=== PATIENT | female | born 1960 | race Caucasian/White ===

== ENCOUNTER → 2017-02-27 | Outpatient (CLI) | payer BC ==
[~2017-02-27] MED LIST: CHOL20007 PO; CLOB-65 EXT; CYCL0.052 OP; ERGO1CAP35 PO; ETAN25IN4 SC; FLUO0.05 TOP; LEVO75TA5 PO; LISI10TA PO; MELO15TA3 PO; MELO7.5T5 PO; METR1GEL3 TOP; MULTCAP7 PO
--- NOTE | 2017-02-27 08:51 | DIAGNOSTIC IMAGING REPORT ---
ABDOMINAL ULTRASOUND, RIGHT UPPER QUADRANT HISTORY: Right upper quadrant abdominal pain. COMPARISON: Right upper quadrant ultrasound August 28, 2014. FINDINGS: Liver morphology is normal. No hepatic lesions are identified. There is no biliary ductal dilatation. The common bile duct measures 5 mm in caliber. Multiple gallstones are noted. There is no gallbladder wall thickening or pericholecystic fluid. The pancreatic body is normal. The head and tail are slightly obscured. There is no right hydronephrosis. IMPRESSION: 1. Cholelithiasis. No gallbladder wall thickening. 2. No biliary ductal dilatation. Electronically signed by: Geronimo Schafer M.D. 02/27/2017 8:50 AM Dictated Date/Time: 02/27/2017 8:49 AM
== END | disposition home or self-care (01) ==
LOC: C.ULTR 08:13
PROVIDERS: ATTEND Physician Assistant Medical
DX: R10.11 Right upper quadrant pain (principal)

== ENCOUNTER → 2017-03-17 | Outpatient (CLI) | payer BC ==
[2017-03-19 11:08] LABS: HERPES SIMPLEX CULT SOURCE GENITAL-VULVA; HERPES SIMPLEX VIRUS CULT NOT ISOLATED (NOT ISOLATED)
== END | disposition home or self-care (01) ==
LOC: C.LABSPEC 10:44
PROVIDERS: ATTEND Physician Assistant
DX: N76.6 Ulceration of vulva (principal)

== ENCOUNTER → 2017-03-17 | Outpatient (CLI) | payer BC | END | disposition home or self-care (01) | LOC: C.PAPS 11:17 | PROVIDERS: ATTEND Physician Assistant | DX: Z01.419 Encounter for gynecological examination (general) (routine) without abnormal findings (principal) ==

== ENCOUNTER 2017-03-31 05:04 | Day surgery (SDC) | payer BC ==
[2017-03-19 09:04] VITALS: BMI 44.0
--- NOTE | 2017-03-19 09:39 | PAT Medication Instructions ---
Service Date Mar 19, 2017. Current Home Medication List Cholecalciferol (Vitamin D3), 1 TAB PO QAM Cyclosporine (Ophth) (Restasis), 1 DROP OP BID Etanercept (Enbrel), SC WK Levothyroxine Sodium (Levothyroxine Sodium), 1 TAB PO QAM Lisinopril (Prinivil), 10 MG PO QAM Meloxicam (Mobic), 15 MG PO QAM Multiple Vitamins W/ Minerals (Eye Vitamins), 1 CAP PO BID Medication Instructions For Your Scheduled Surgery - Hold per Machine Stamper's instructions: Etanercept (Enbrel), SC WK - Hold the following medications the morning of surgery: Lisinopril (Prinivil), 10 MG PO QAM Cholecalciferol (Vitamin D3), 1 TAB PO QAM Multiple Vitamins W/ Minerals (Eye Vitamins), 1 CAP PO BID Meloxicam (Mobic), 15 MG PO QAM (otherwise okay to continue per surgeon) - Take the following medications the morning of surgery with a sip of water OTHERWISE NOTHING TO EAT OR DRINK AFTER MIDNIGHT: Cyclosporine (Ophth) (Restasis), 1 DROP OP BID Levothyroxine Sodium (Levothyroxine Sodium), 1 TAB PO QAM - Take the following medications as scheduled the night before surgery: Cyclosporine (Ophth) (Restasis), 1 DROP OP BID Multiple Vitamins W/ Minerals (Eye Vitamins), 1 CAP PO BID If you have any questions please call us at [phone] or [phone] or [phone]
--- NOTE | 2017-03-19 10:22 | DIAGNOSTIC IMAGING REPORT ---
CHEST PREADMISSION(PA/LAT) CLINICAL HISTORY: Preoperative chest COMPARISON STUDY: 02/10/2013 FINDINGS: The cardiac and mediastinal contours are normal. There is no evidence of focal pulmonary consolidation. There is no evidence of failure. No pleural effusions are visualized.[ IMPRESSION: No active disease in the chest. Electronically signed by: Augusto Vásquez M.D. 03/19/2017 10:20 AM Dictated Date/Time: 03/19/2017 10:20 AM
[~2017-03-31] VITALS: Ht 170.2 cm; Wt 128.2 kg
[~2017-03-31 05:04] MED LIST changes: -CLOB-65 EXT; -ERGO1CAP35 PO; -FLUO0.05 TOP; -MELO15TA3 PO; -METR1GEL3 TOP
[2017-03-31 05:35] VITALS: BP 158/76; PULSE 68; TEMP 37; O2SAT 98; Ht 170.2 cm; Wt 128.2 kg
[2017-03-31] MEDS ORDERED: LACTATED RINGER'S 1000ML 1,000 ML IV SCH (06:00)
--- NOTE | 2017-03-31 06:21 | History & Physical Bridge Note ---
H&P Re-Evaluation Bridge Note: I have examined the patient, reviewed the History & Physical and in the interval since the performance of the History & Physical I have noted the following changes of clinical significance: No changes noted all questions answered to be here post op
[2017-03-31] MEDS ORDERED: SUCCINYLCHOLINE CHLORIDE 20 MG/ML 10 ML VIAL IV ONE (06:35)
[2017-03-31] MEDS ORDERED: FENTANYL CITRATE INJ 50 MCG/1 ML 2 ML VIAL ONE ×4 (06:35→08:15)
[2017-03-31] MEDS ORDERED: ONDANSETRON INJ 2 MG/ML 2 ML VIAL ONE (06:35)
[2017-03-31] MEDS ORDERED: MIDAZOLAM HCL 1 MG/ML 2ML VIAL ONE (06:35)
[2017-03-31] MEDS ORDERED: DEXAMETHASONE SOD INJ 4 MG/ML VIAL ONE (06:35)
[2017-03-31] MEDS ORDERED: PROPOFOL IV EMULSION 10 MG/ML 20 ML VIAL IV ONE (06:35)
[2017-03-31] MEDS ORDERED: LIDOCAINE HCL 2% 2 ML VIAL (20MG/ML) ONE (06:35)
[2017-03-31] MEDS ORDERED: LIDOCAINE/EPINEPHRINE 1% 20 ML VIAL ONE (06:38)
[2017-03-31] MEDS ORDERED: CONRAY 60% 50 ML VIAL ONE (06:38)
[2017-03-31] MEDS ORDERED: SODIUM CHLORIDE 0.9% 1000ML 1,000 ML IV SCH (08:09)
[2017-03-31] MEDS ORDERED: OXYC-57 PO (08:11)
--- NOTE | 2017-03-31 08:13 | Discharge Instructions ---
Discharge Instructions Date of Service Mar 31, 2017. Admission Reason for Admission: Cholelithiasis Discharge Discharge Diagnosis / Problem: Cholelithiasis Discharge Goals Goal(s): Decrease discomfort, Improve function Activity Recommendations Activity Limitations: as noted below Lifting Limitations: no more than 10 pounds Exercise/Sports Limitations: until after follow-up appointment May Resume Sexual Activity: after follow-up appointment Shower/Bathe: tomorrow Driving or Machine Use: resume 3 days after discharge . Instructions / Follow-Up Instructions / Follow-Up Please follow-up with Dr. Kamara in the office in 1-2 weeks. Please call the office at [phone] to make a follow-up appointment if you do not have one already. Please call the office with any questions or concerns. Current Hospital Diet Patient's current hospital diet: Discharge Diet Recommended Diet: Regular Diet Procedures Procedures Performed: Laparoscopic Cholcystectomy with cholangiogram Pending Studies Studies pending at discharge: yes List of pending studies: Pathology report. Medical Emergencies . Who to Call and When: Medical Emergencies: If at any time you feel your situation is an emergency, please call 911 immediately. . Non-Emergent Contact Non-Emergency issues call your: Primary Care Provider, Surgeon Call Non-Emergent contact if: temperature is above 101.5, your pain is not controlled, wound has increased drainage, wound has increased redness . "Provider Documentation" section prepared by Lou Flores. . VTE Core Measure Inpt VTE Proph given/why not?: SCD's [place] Drug Monitoring Program Search Results: patient reviewed within database, no issues identified
[2017-03-31] MEDS ORDERED: PROMETHAZINE HCL INJ 12.5 MG in SODIUM CHLORIDE 0.9% 50ML 50 ML IV PRN ×2 (08:15→10:00)
[2017-03-31] MEDS ORDERED: NALOXONE HCL 0.4 MG/1 ML VIAL/CARP IV PRN (08:15)
[2017-03-31] MEDS ORDERED: ATROPINE SULFATE 0.1 MG/ML 5ML SYR IV PRN (08:15)
[2017-03-31] MEDS ORDERED: OXYCODONE/ACETAMINOPHEN 5-325 TAB PO PRN ×2 (08:15)
[2017-03-31] MEDS ORDERED: FLUMAZENIL 0.1 MG/1 ML 10 ML VIAL IV PRN (08:15)
[2017-03-31] MEDS ORDERED: EpHEDrine SULFATE INJ 50 MG/ML AMP IV PRN (08:15)
[2017-03-31] MEDS ORDERED: ONDANSETRON INJ 2 MG/ML 2 ML VIAL IV PRN ×2 (08:15)
[2017-03-31] MEDS ORDERED: LABETALOL HCL IV 5 MG/ML 20ML IV PRN (08:15)
[2017-03-31] MEDS: FENTANYL CITRATE INJ 50 MCG/1 ML 2 ML VIAL IV PRN ×4 (08:18→08:35)
--- NOTE | 2017-03-31 08:21 | OPERATIVE REPORT ---
DATE OF OPERATION: 03/31/2017 SURGEON: Ousmane Kamara MD. [facility] HELPER DISTILLERY: Lou Flores PA-C. PREOPERATIVE DIAGNOSIS: Chronic cholecystitis, cholelithiasis, symptomatic. POSTOPERATIVE DIAGNOSIS: Chronic cholecystitis, cholelithiasis, symptomatic. OPERATIVE PROCEDURE: Laparoscopic cholecystectomy, intraoperative cholangiogram. SUMMARY: After induction of general endotracheal anesthesia, the patient's abdomen was prepped with Betadine solution and properly draped. I made a small incision supraumbilically sufficient enough to place a Veress needle followed by CO2 followed by 5 mm trocar. Point of entry inspected and no injury was identified. Under direct visualization, we placed a 5 mm epigastric, two 5 mm subcostal port with preemptive local analgesia of 1% Xylocaine with epinephrine. Gallbladder was visualized. Some adhesions to the gallbladder which was chronic in nature were taken down, mostly by blunt dissection. Retracted the gallbladder out. Then we dissected out towards the triangle of Calot. We identified a very small artery, then bifurcated and we doubly clipped and divided cystic duct. We dissected out sufficient enough to get around it. At this point, we placed a clip proximally. A small opening in the cystic duct was made. A #4 ureteral catheter transversed the abdominal wall and an Angiocath was positioned in the cystic duct. Serial x-rays were taken which showed free flow into the duodenum. No obstruction. At this point the cholangiocatheter was then removed. The gallbladder was doubly clipped and divided and taken out in an antegrade fashion using electrocautery, leaving as much peritoneum and touched the liver as possible. Gallbladder was then placed in an Endopouch and taken out intact through the epigastric port. At that point, the subhepatic and suprahepatic area was checked for hemostasis and appeared satisfactory. We placed a camera in subcostal port to visualize the umbilical hernia. There were no adhesions to the abdominal wall at the umbilical opening. Wounds were closed with 4-0 Monocryl. Steri-Strips applied. The procedure was tolerated well by the patient and was taken to recovery room in good condition. I attest to the content of the Intraoperative Record and any orders documented therein. Any exception s are noted below.
--- NOTE | 2017-03-31 08:22 | DIAGNOSTIC IMAGING REPORT ---
CHOLANGIOGRAM O.R. HISTORY: Post cholecystectomy. FLUOROSCOPY TIME: 3 seconds. FINDINGS: Fluoroscopy was provided for an intraoperative cholangiogram status post cholecystectomy. Contrast was injected through the cystic duct remnant. The common bile duct is normal in course and caliber. There are no filling defects seen within the common bile duct to suggest a retained stone. Contrast extends into the small bowel. There is no intrahepatic bile duct dilatation. IMPRESSION: Fluoroscopy provided for an intraoperative cholangiogram status post cholecystectomy. No filling defects within the common bile duct. The above report was generated using voice recognition software. It may contain grammatical, syntax or spelling errors. Electronically signed by: Andrea Roach M.D. 03/31/2017 8:21 AM Dictated Date/Time: 03/31/2017 8:17 AM
--- NOTE | 2017-03-31 08:27 | [facility] Operative Report ---
Operative Report Operative Date Mar 31, 2017. Pre-Operative Diagnosis Symptomatic Cholelithiasis Post-Operative Diagnosis Symptomatic Cholelithiasis Procedure(s) Performed Laparoscopic Cholcystectomy with cholangiogram Surgeon Dr. Jerardo Kamara Clinical Business Analyst Surgeon(s) Edwin Flores PA-C Estimated Blood Loss 5mL Findings ccc Specimens A: Gallbladder and contents Indications pain ruq Description of Procedure OR summary dictated confirmation number [id number] I attest to the content of the Intraoperative Record and any orders documented therein. Any exceptions are noted below.
--- NOTE | 2017-03-31 09:06 | Anesthesiology Progress Note ---
Anesthesia Post Op Note Date & Time Mar 31, 2017 at 09:06 Vital Signs Pain Intensity: 2 Vital Signs Past 12 Hours Date Time Temp Pulse Resp B/P (MAP) Pulse Ox O2 Delivery O2 Flow Rate FiO2 03/31/17 08:44 36.8 03/31/17 08:42 67 12 03/31/17 08:42 67 12 93 03/31/17 08:41 155/83 03/31/17 08:37 67 16 03/31/17 08:37 67 16 92 03/31/17 08:36 152/85 03/31/17 08:32 67 13 92 03/31/17 08:32 67 13 03/31/17 08:31 156/87 03/31/17 08:27 71 10 99 03/31/17 08:27 71 10 03/31/17 08:26 160/93 03/31/17 08:22 71 11 03/31/17 08:22 71 11 97 03/31/17 08:21 159/87 03/31/17 08:17 80 19 100 03/31/17 08:17 80 19 03/31/17 08:16 169/84 03/31/17 08:13 164/91 03/31/17 08:07 36.9 90 16 170/90 100 Oxymask 7 03/31/17 05:35 37 68 20 158/76 (103) 98 Room Air Notes Mental Status: alert / awake / arousable, participated in evaluation Pt Amnestic to Procedure: Yes Nausea / Vomiting: adequately controlled Pain: adequately controlled Airway Patency, RR, SpO2: stable & adequate BP & HR: stable & adequate Hydration State: stable & adequate Anesthetic Complications: no major complications apparent
[2017-03-31 09:07] VITALS: BP 158/76; PULSE 71; TEMP 36.4; O2SAT 96
[2017-03-31 09:37] VITALS: BP 148/77; PULSE 72; O2SAT 96
[2017-03-31] MEDS ORDERED: NURSING VERBAL MED ORDER ONE (10:00)
[2017-03-31 10:10] VITALS: BP 146/70; PULSE 61; O2SAT 97
[2017-03-31 10:40] VITALS: BP 158/78; PULSE 73; O2SAT 97
[2017-03-31 11:40] VITALS: BP 150/65; PULSE 78; TEMP 36.4; O2SAT 97
== END 2017-03-31 11:40 | disposition home or self-care (01) ==
LOC: C.ACU 05:04
PROVIDERS: ATTEND Surgery
DX: K80.18 Calculus of gallbladder with other cholecystitis without obstruction (principal); E78.5 Hyperlipidemia, unspecified; I10 Essential (primary) hypertension; Z90.722 Acquired absence of ovaries, bilateral; Z86.010 Personal history of colon polyps; Z80.0 Family history of malignant neoplasm of digestive organs; Z83.3 Family history of diabetes mellitus; Z80.1 Family history of malignant neoplasm of trachea, bronchus and lung

== ENCOUNTER → 2017-04-21 | Outpatient (CLI) | payer BC ==
--- NOTE | 2017-04-22 07:43 | MAMMOGRAPHY REPORT ---
BILATERAL DIGITAL SCREENING MAMMOGRAM TOMOSYNTHESIS WITH CAD: 04/21/2017 CLINICAL HISTORY: Routine screening. Patient has no complaints. TECHNIQUE: Breast tomosynthesis in addition to standard 2D mammography was performed. Current study was also evaluated with a Computer Aided Detection (CAD) system. COMPARISON: Comparison is made to exams dated: 08/24/2015 mammogram, 06/19/2014 mammogram, 05/27/2012 mammogram, 05/26/2011 mammogram, 05/16/2010 mammogram, and 05/11/2009 mammogram - [facility]. BREAST COMPOSITION: There are scattered areas of fibroglandular density in both breasts. FINDINGS: There is stable nodularity in the left breast. No new suspicious mass, architectural dist ortion or cluster of microcalcifications is seen. IMPRESSION: ACR BI-RADS CATEGORY 1: NEGATIVE There is no mammographic evidence of malignancy. A 1 year screening mammogram is recommended. The pa tient will receive written notification of the results. Approximately 10% of breast cancers are not detected with mammography. A negative mammographic report should not delay biopsy if a clinically suggestive mass is present. Meghan Sterling M.D. ay/:04/21/2017 20:22:43 [employer] Principal: [place] SOTO(Patrick)(Lauro)([place]), [facility] letter sent: Normal 1/2 BI-RADS Code: ACR BI-RADS Category 1: Negative
== END | disposition home or self-care (01) ==
LOC: C.MAMM 09:13
PROVIDERS: ATTEND Internal Medicine
DX: Z12.31 Encounter for screening mammogram for malignant neoplasm of breast (principal)

== ENCOUNTER → 2017-09-10 | Outpatient (CLI) | payer OTHER, BC ==
--- NOTE | 2017-09-10 10:40 | DIAGNOSTIC IMAGING REPORT ---
LEFT FOOT 3 VIEWS HISTORY: LEFT FOOT PAIN COMPARISON: None. FINDINGS: Focal cortical thickening within the proximal to mid shaft of the fourth metatarsal. This favors an old, healed fracture. Otherwise, no acute fracture or dislocation within the left foot. Mild osteoarthritis within the intertarsal joints. Plantar heel spur. Soft tissues are unremarkable. No radiopaque foreign bodies. IMPRESSION: Focal cortical thickening within the shaft of the fourth metatarsal. This favors an old, healed fracture. However, if there is 4th metatarsal pain then an MRI can be used for further evaluation to exclude the possibility of a stress fracture. Electronically signed by: Holger Lewis M.D. 09/10/2017 10:39 AM Dictated Date/Time: 09/10/2017 10:35 AM
== END | disposition home or self-care (01) ==
LOC: C.RDSM 10:03
PROVIDERS: ATTEND Family Medicine
DX: M79.672 Pain in left foot (principal)

== ENCOUNTER 2022-05-20 09:38 | Observation (INO) ==
--- NOTE | 2022-04-23 15:39 | PAT Medication Instructions ---
Medication Instructions Date of Service April 23, 2022 Home Medications Medication Instructions Recorded meloxicam 15 mg tablet 15 mg PO DAILY #30 tabs 11/30/18 etanercept 25 mg/0.5 mL (0.5 mL) 25 mg (0.5 mL) subcut ONCE #0.5 mL 06/06/19 subcutaneous syringe (Enbrel) levothyroxine 88 mcg tablet 88 mcg PO DAILY #90 tabs 11/06/21 lisinopril 20 mg tablet 20 mg PO DAILY #30 tabs 01/28/22 rosuvastatin 5 mg tablet 5 mg PO DAILY #30 tabs 01/28/22 blood sugar diagnostic (I Am Smart TechnologyTouch #100 ea 03/31/22 Ultra Test strips) blood-glucose meter (I Am Smart TechnologyTouch #1 ea 03/31/22 Ultra2 Meter kit) lancets 30 gauge (I Am Smart TechnologyTouch Delica #100 ea 03/31/22 Lancets) metformin 500 mg tablet 500 mg PO BIDWMEAL #180 tabs 03/31/22 meloxicam 15 mg tablet 15 mg PO DAILY cholecalciferol (vitamin D3) 50 mcg (2,000 unit) capsule 2,000 units PO QAM etanercept 25 mg/0.5 mL (0.5 mL) subcutaneous syringe (Enbrel) 25 mg (0.5 mL) subcut ONCE levothyroxine 88 mcg tablet 88 mcg PO DAILY lisinopril 20 mg tablet 20 mg PO DAILY rosuvastatin 5 mg tablet 5 mg PO DAILY gabapentin 300 mg capsule 300 mg PO QPM metformin 500 mg tablet 500 mg PO BIDWMEAL ASK your surgeon for instructions meloxicam 15 mg tablet 15 mg PO DAILY ASK your prescriber and surgeon etanercept 25 mg/0.5 mL (0.5 mL) subcutaneous syringe (Enbrel) 25 mg (0.5 mL) subcut ONCE DO NOT take the morning of surgery cholecalciferol (vitamin D3) 50 mcg (2,000 unit) capsule 2,000 units PO QAM lisinopril 20 mg tablet 20 mg PO DAILY metformin 500 mg tablet 500 mg PO BIDWMEAL Take morning of surgery With a small sip of water, OTHERWISE NOTHING TO EAT OR DRINK AFTER MIDNIGHT: levothyroxine 88 mcg tablet 88 mcg PO DAILY rosuvastatin 5 mg tablet 5 mg PO DAILY Take evening before surgery gabapentin 300 mg capsule 300 mg PO QPM metformin 500 mg tablet 500 mg PO BIDWMEAL Other Notes If you have any questions please call us at [phone] or [phone] or [phone] or [phone]
--- NOTE | 2022-04-29 10:24 | Anesthesiology Consultation ---
Date of Service April 29, 2022 Assessment & Plan (1) Encounter for pre-operative examination: - COVID screening: Per assessment on 04/29: No known COVID-19 positive contacts or current COVID-19 related symptoms. Travel screen negative. Patient vaccinated. At surgeon discretion if preop Covid testing being done. - Check BSG AM DOS - Outpatient joint assessment: Pt currently scheduled for inpatient pathway. If surgeon requests review for outpatient joint pathway, patient is not recommended candidate for outpatient joint program from anesthesia standpoint. Chart Review Chart Review: Acceptable Risk for Surgery and Patient seen in Pre Admission Testing Teaching & Discussion Pre-Anesthesia Teaching/Discussion Notes: Instructed NPO after midnight before surgery,except medications with 15 cc of water. Medication instructions provided according to the PAT guidelines. History Surgery Operation Date: 05/20/22 07:00 Proposed Procedures p Right Total Knee Arthroplasty - Jose Atwood MD Height/Weight Height: 5 ft 7 in Weight: 126.9 kg Allergies Allergy/AdvReac Type Severity Reaction Status Date / Time adalimumab Allergy Unknown Localized Verified 04/29/22 08:44 redness, swelling Medications Home Medications Medication Instructions Recorded Confirmed Last Taken meloxicam 15 mg tablet 15 mg PO DAILY #30 tabs 11/30/18 04/23/22 Unknown cholecalciferol (vitamin D3) 50 2,000 units PO QAM 03/09/19 04/23/22 Unknown mcg (2,000 unit) capsule etanercept 25 mg/0.5 mL (0.5 mL) 25 mg (0.5 mL) subcut ONCE #0.5 mL 06/06/19 04/23/22 Unknown subcutaneous syringe (Enbrel) levothyroxine 88 mcg tablet 88 mcg PO DAILY #90 tabs 11/06/21 04/23/22 Unknown lisinopril 20 mg tablet 20 mg PO DAILY #30 tabs 01/28/22 04/23/22 Unknown rosuvastatin 5 mg tablet 5 mg PO DAILY #30 tabs 01/28/22 04/23/22 Unknown gabapentin 300 mg capsule 300 mg PO QPM 02/03/22 04/23/22 Unknown blood sugar diagnostic (MommyCoachuch #100 ea 03/31/22 04/03/22 Unknown Ultra Test strips) blood-glucose meter (OneTouch #1 ea 03/31/22 04/03/22 Unknown Ultra2 Meter kit) lancets 30 gauge (OneTouch Delica #100 ea 03/31/22 04/03/22 Unknown Lancets) metformin 500 mg tablet 500 mg PO BIDWMEAL #180 tabs 03/31/22 04/23/22 Unknown Past Medical History Medical History Hypercholesterolemia Hypertension Hypothyroidism Morbid obesity Psoriatic arthritis Right knee DJD Type 2 diabetes mellitus without complication Exercise / Class Metabolic Activity II 4-5 Yardwork/Stairs/Walk up hill (one FS (No CP, no SOB)) Past Family History Family History Mother Ovarian cancer Father Myocardial infarction Denies family history of Prostate cancer Breast cancer Congenital kidney disease Colorectal cancer Past Surgical History Surgical History Hx of cholecystectomy Hx of colonoscopy Hx of foot surgery left arch reconstruction Hx of ovarian cystectomy Hx of sinus surgery Past Anesthesia History No Hx of Anesthesia Complications and No Family Hx of Anesthesia Complications History of PONV No Hx of PONV and No Hx of Motion Sickness Social History Smoking Status: Never smoker Do You Dip or Chew Tobacco: No Hx Alcohol Use: Yes (Very rare) Alcohol type: wine Hx Substance Use: No substance use type: does not use Review of Systems Patient denies chest pain, shortness of breath, dyspnea on exertion, fever, chills, cough, wheezing, palpitations. Physical Exam Vital Signs VITALS BP 128/79 P 70 TEMP 98.2 SP02 99%RA RESP 16 PHYSICAL Full cervical extension range of motion. Full TMJ range of motion. TMD 4 finger breaths Mallampati Score 2 Dentition: crown fell off (right lower side) Lungs: clear throughout to auscultation Cardiac: regular rate and rhythm, no murmurs noted Spine: normal Carotid arteries: negative bruit Extremities: no edema Thick neck Lab Results Anesthesia Preop Results Results Anesthesia Widget: WBC 5.72 K/ul (4.8-10.8) 04/29/22 Hgb 12.6 g/dl (12.0-16.0) 04/29/22 Hct 38.3 % (34.1-44.9) 04/29/22 Plt 213 K/uL (130-400) 04/29/22 Na 141 mmol/L (136-145) 04/29/22 K 4.1 mmol/L (3.5-5.1) 04/29/22 Cl 109 mmol/L (98-107) H 04/29/22 CO2 27 mmol/L (21-32) 04/29/22 BUN 17 mg/dl (6-23) 04/29/22 Creat 0.78 mg/dl (0.6-1.2) 04/29/22 Glucose Level 100 mg/dl (70-99(Fasting)) H 04/29/22 PT 10.3 Seconds (9.0-12.0) 04/29/22 PTT 23.9 Seconds (21.0-31.0) 04/29/22 INR 1.0 (0.9-1.1) 04/29/22 TSH 2.09 mIU/L (0.40-4.50) 03/21/22 HA1c 6.5 % of total Hgb (<5.7) H 03/21/22 Blood Type A Negative 04/29/22 Antibody Screen NEGATIVE 04/29/22 Testing Laboratory Results 03/21/22 HGBA1C 6.5% Electrocardiogram Date: 04/29/22 NSR at 71bpm. unconfirmed report. Chest X-Ray Date: 04/29/22 FINDINGS: PA and lateral chest radiographs are compared to study dated 03/19/2017. The cardiomediastinal silhouette is top normal for projection. Chronic interstitial thickening is similar to previous. The lungs and pleural spaces are clear noting bibasilar atelectasis. There is no pneumothorax. The skeletal structures are osteopenic. The bony thorax appears intact. Surgical clips are noted in the upper abdomen. IMPRESSION: No active disease in the chest. COVID-19 Risk Screen Screening Information COVID-19 Screen Date: 04/29/22 Exposure 21 Days Family/Household +COVID Last 21 Days: No Exposure 10 Days Any COVID Exposure Last 10 Days: No Symptoms Last 10 Days Experienced COVID Sx Last 10 Days: No + COVID 0-90 Days COVID + in Last 0-90 Days: No
--- NOTE | 2022-05-16 15:19 | History and Physical Report ---
CHIEF COMPLAINT: Persistent right knee pain and discomfort. HISTORY OF PRESENT ILLNESS: The patient is a 62-year-old female who presents for surgical treatment of her right knee. She has got a long history of right knee pain and discomfort that has gradually g srinivas worse over time. She has been through extensive conservative treatment, which has become less successful. She has got global pain. The more she is up and on the knee, the more it hurts. She li mps more as the day goes on. Of note, the patient did have a relatively recent foot surgery that done at [facility]. It has taken a while for her to heal up and she has been to wound clinic. She finally got this healed. She is now like to have her knee fixed. PAST MEDICAL HISTORY: Significant for: 1. Hypertension. 2. Elevated cholesterol. 3. Hypothyroidism. 4. Obesity, BMI of 44. 5. Psoriatic arthritis. 6. Kidney stones. PAST SURGICAL HISTORY: Includes: 1. Nephrectomy. 2. Sinus surgery. 3. Left foot surgery done on 10/25/2021 at [facility]. CURRENT MEDICATIONS: Include: 1. Vitamin D3. 2. Enbrel. 3. Gabapentin. 4. Levothyroxine. 5. ____ 6. Meloxicam. 7. Rosuvastatin. SOCIAL HISTORY: A 62-year-old female. She does not smoke. She is . Rare alcohol intake. FAMILY HISTORY: Noncontributory. REVIEW OF SYSTEMS: Negative for diabetes. Does have a history of psoriatic arthritis and on Enbrel. This had been stopped for a period of time for wound healing. PHYSICAL EXAMINATION: GENERAL: Shows a pleasant middle-aged female. Looks to be in pretty good health. HEENT: Benign. NECK: Supple. No lymphadenopathy. LUNGS: Clear to auscultation. HEART: Regular rate and rhythm. ABDOMEN: Soft, nontender, nondistended. EXTREMITIES: Grossly neurovascularly intact except as follows. Examination of the right knee reveals the patient walks with a slight bit of a limp. She has got александр us alignment to her knee. Moderate soft tissue envelope. Tender over the medial joint line. Small knee effusion. Range of motion 5-120. No instability. No pain with hip motion. X-RAYS: Four views of the right knee are reviewed. It shows advanced right knee tricompartment DJD. She has got near complete loss of medial joint space. She has got osteophytes in all 3 compartment s. ASSESSMENT: A 62-year-old female now about 6 months out from a foot surgery with advanced right knee degenerative joint disease. She has failed conservative measures. The foot wound has healed up and she would like to have her right knee fixed. PLAN: We are going to proceed with right knee replacement. The risks and benefits of this procedure were explained to the patient and include but not limited to DVT, PE, , infection, neurological injury, vascular injury, bleeding problem, pain, limited range of motion, stiffness, failure to reli paul symptoms, incomplete relief of symptoms, need for further surgery in the future, etc. The patien t understands and desires to proceed. Informed consent was obtained. She is at increased risk of infection due to her psoriatic arthritis, on Enbrel use. We will likely put her on some ____ postoperatively. As far as discharge plans, she is planning to be discharged to home with home health. Job ID: [id number]
[~2022-05-20 09:38] MED LIST changes: +ACETAMINOPHEN 500 MG TAB PO SCH; +BUPIVACAINE 0.5 % 5 MG/1 ML PF 10ML VIAL ONE; +BUPIVACAINE LIPOSOME/PF 266 MG, BUPIVACAINE/EPINEPHRINE 50 ML, SODIUM CHLORIDE 0.9% 30 ... INFIL SCH; -CHOL20007 PO; -CYCL0.052 OP; +CeleBREX 200 MG CAP PO SCH; -ETAN25IN4 SC; +FAMOTIDINE 20 MG TAB PO SCH; -LEVO75TA5 PO; -LISI10TA PO; +LR 500ML BOLUS, THEN 15ML/HR IV SCH; +LR 60ML/HR IV SCH; -MELO7.5T5 PO; +METOCLOPRAMIDE HCL 10 MG TABLET PO SCH; -MULTCAP7 PO; +ROPIVACAINE 0.5% 5 MG/ML 30 ML VIAL ONE; +Scopolamine 1 MG TDSY TD SCH; +TRANEXAMIC ACID 1,000 MG **IV Intra-op IV SCH
--- NOTE | 2022-05-20 12:08 | History & Physical Bridge Note ---
Date of Service May 20, 2022 History & Physical Bridge Note I have examined the patient, reviewed the History & Physical and in the interval since the performance of the History & Physical I have noted the following changes of clinical significance: no changes noted
[2022-05-20] MEDS ORDERED: ePHEDrine sulfate 50 MG/ML AMP IV PRN (13:11)
[2022-05-20] MEDS ORDERED: HYDROmorphone INJ 1 MG/ML SYRINGE IV PRN ×2 (13:11→17:39)
[2022-05-20] MEDS ORDERED: ATROPINE SULFATE 0.1 MG/ML 10ML SYR IV PRN (13:11)
[2022-05-20] MEDS ORDERED: KETOROLAC 30 MG/ML VIAL IV PRN (13:11)
[2022-05-20] MEDS ORDERED: ONDANSETRON INJ 2 MG/ML 2 ML VIAL IV PRN ×2 (13:11→17:39)
[2022-05-20] MEDS ORDERED: MIDAZOLAM HCL 1 MG/ML 2ML VIAL ONE (13:13)
[2022-05-20] MEDS ORDERED: PROPOFOL IV EMULSION 10 MG/ML 20 ML VIAL IV ONE ×2 (13:18→15:30)
[2022-05-20] MEDS ORDERED: SODIUM CHLORIDE 0.9% INJ 10 ML VIAL ONE (13:49)
[2022-05-20] MEDS ORDERED: BUPIVACAINE LIPOSOME 1.3% 266 MG/20 ML VIAL ONE (13:49)
[2022-05-20] MEDS ORDERED: BUPIVACAINE/EPINEPHRINE 0.25% 1:200,000 30 ML VIAL ONE (13:49)
[2022-05-20] MEDS ORDERED: SODIUM CHLORIDE 0.9% PF 50 ML VIAL ONE (14:21)
--- NOTE | 2022-05-20 16:03 | Operative Report ---
PG Post Operative Report Pre & Post Diagnosis Operation Date: 05/20/22 12:30 Pre-Op Diagnosis: Right Knee DJD Post-Op Diagnosis: Right Knee DJD I identified the patient and participated in the time-out.: Yes Procedure Operation Date: 05/20/22 12:30 Actual Procedures p Right Total Knee Arthroplasty(Right) - Jose Atwood MD Surgeon Jose Atwood MD Clerk [employer] Wes Ruggiero PA-C Estimated Blood Loss 50 Findings Consistent with Post-Op Diagnosis Operative findings revealed advanced right knee DJD. She had extensive grade 4 disease in all 3 compartments. Moderate-sized joint effusion. Osteophytes in all 3 compartments. Fairly stiff knee with about 10 degree flexion contracture in about 100 degrees of flexion preoperatively. Fluids 1000 cc Specimens Right knee sent for pathology Drains None Anesthesia Type Spinal MAC Complications none Disposition Accompanied Patient To Recovery: No Indications Patient 62-year-old female said a long history of right knee pain discomfort describes gotten worse over time patient been to extensive conservative treatment which became less successful over time. X-rays show advanced right knee tricompartment DJD. She elected proceed with surgical treatment. She had very stiff knee preoperatively. Description of Procedure Operative implants consist of: 1 Biomet Vanguard size 65 right posterior stabilized femoral component. 2. Biomet size 67 tibial tray. 3. 10 mm posterior stabilized polyethylene insert. 4. 31 x 8 all Paller patella. The patient was taken the operating, identified, placed on the operating table supine position protectors were properly padded. IV antibiotics tried by anesthesia team. A spinal anesthetic and abductor canal block had provided in the holding area. A Dillard catheter was placed in sterile fashion. Right thigh tent was then placed in the right lower extremities and prepped and draped in usual sterile fashion. The right leg was elevated exsanguinated with use of an Esmarch in terms playset 300 mmHg. An anterior approach of the right knee was then performed to long itudinal incision centered over the patella. Sharp dissection was carried through subcutaneous tissue down below the extensor mechanism. A medial parapatellar arthrotomy incision was made. Some subperiosteal dissection was carried out medially. The fat pad was resected from Neath patella tendon. The lateral patellofemoral ligament was released. Patella subluxated laterally. The knee was flexed. The osteophytes taken off distal femur. The ACL and PCL were then released from distal femur the tibia subluxated anteriorly. The external tibial alignment guide was then placed in the interface the tibia and adjusted 14 mm medially. Proximal tibial cut was made removed by millimeter bone from most deficient aspect medial tibial plateau. Some osteophytes taken off medial and posterior medially. We sized the tibia to a 67. I did have to downsize it in order to get the appropriate rotation. Attention drawn the femur. The distal femur examined the sharp drop with intramedullary canal was suction. A right 5 degree valgus cutting guide was placed. Distal femoral cutting block was pinned in place. Distal femoral cut was made to take an additional 3 mm of bone off distal femur. The femur was then sized to a size 65. Sized almost exactly to a 65. The AP cutting block was pinned parallel to the epicondylar axis which was 4 degrees of external rotation. Anterior cut, anterior chamfer, posterior cut, posterior chamfer cuts were made. The box cutting guide was placed in just slight lateral box cut was made. The knee was flexed. The remnants of the medial and lateral menisci were excised with the osteophytes taken off the posterior aspect the femur. A trial femoral component was placed for the tibial tray was pinned in maximum external rotation and the drill and stem punch were used to create defect in proximal tibia for the tibial tray. The knee was then trialed and 10 mm insert fit most appropriately. Attention drawn the patella. The patella was cleaned of all soft tissues. Patella thickness measured 23 mm in thickness. Was cut down to 14. It was sized to a size 31 patella. The lug holes were drilled for 31 patella. The lateral osteophyte was removed. Patella button was placed. Knee was taken through range of motion patella tracked nicely with no thumbs test. Attention drawn to placing the permanent components. Nupathe all trial components were removed. Bone plug was placed into the distal femur limit blood loss. Double batch Palacos G cement was mixed. A Biomet Vanguard size 65 right posterior stabilized femoral component, size 67 tibial tray, a 10 mm posterior stabilized polyethylene insert, and a 31 x 8 all Paller patella then cemented in place. Knee was brought out into full extension total cement hardened. Final cement check was then performed. Pericapsular tissues were injected with total of 100 cc of combination of 20 cc of Exparel, 30 cc normal saline, 50 cc of quarter percent Marcaine with epinephrine. Patient did receive 1 g tranexamic acid but the tourniquet was let down for final turn time 65 minutes. Hemostasis assured with electrocautery. Extensor mechanism then closed with a combination 1 PDS suture and then 1 Vicryl suture in a [id number] fashion. Extensor mechanism checked found to be intact the subcutaneous tissue then closed with 2 Dexon suture in a buried interrupted fashion skin was closed skin katie. Leg was then cleaned and dried a sterile dressing was Xeroform, 4 x 4's, sterile cast padding, Jai bandage were applied. Patient then transferred to the recovery room in stable condition. Patient tolerated procedure well and there were no complications. Wes Ruggiero, my physician assistant gm of content & delivery, was present for the entire procedure. His assistance was required for proper patient positioning, prepping and draping, surgical exposure, retraction, performing technical details the operation, placement of the implants, closure of the wound and placement of the sterile bandage. I attest to the content of the Intraoperative Record and any orders documented therein. Any exceptions are noted below.
--- NOTE | 2022-05-20 16:48 | Anesthesiology Progress Note ---
Date of Service May 20, 2022 Anesthesia Post Procedure Vital Signs Vital Signs: Temp Pulse Resp BP Pulse Ox O2 Del Method 05/20/22 16:20 79 19 139/74 99 Room Air 05/20/22 16:40 66 17 162/95 H 98 Room Air 05/20/22 16:30 68 18 145/76 H 94 Room Air 05/20/22 16:10 61 19 134/65 99 Room Air 05/20/22 16:00 36.3 C L 71 12 131/61 100 Room Air 05/20/22 10:19 37.1 C 77 20 168/77 H 99 Room Air Pain Intensity Right Knee: Pain Intensity: 4 Transfer of Care Handoff Completed per policy Notes Mental Status: alert / awake / arousable and participated in evaluation Patient Amnestic to Procedure: Yes Nausea / Vomiting: adequately controlled Pain: adequately controlled Airway Patency, RR, SpO2: stable & adequate BP & HR: stable & adequate Hydration State: stable & adequate Anesthetic Complications: no major complications apparent and Pt Satisfied with anesthetic care
--- NOTE | 2022-05-20 17:32 | XRay Report ---
XR knee RT 1 or 2V routine HISTORY: 62 years-old Female Surgical Post Op right knee total joint arthroplasty COMPARISON: Knee radiographs 09/30/2013 TECHNIQUE: 2 views the right knee FINDINGS: Total joint arthroplasty with patellar resurfacing. Anterior midline skin katie are noted along wit h expected postoperative soft tissue swelling with deep tissue air. No acute fracture or unexpected o paque foreign body. IMPRESSION: Right knee total joint arthroplasty and patella resurfacing with expected postoperative c hanges. ACT 112: Negative or not required by law. The above report was generated using voice recognition software. It may contain grammatical, syntax o r spelling errors. Electronically signed by: Zaki Garcia M.D. 05/20/2022 5:31 PM
[2022-05-20] MEDS ORDERED: NALOXONE HCL 0.4 MG/1 ML VIAL/CARP IV PRN (17:39)
[2022-05-20] MEDS ORDERED: GLUCOSE 10 TAB/TUBE PO PRN (17:39)
[2022-05-20] MEDS ORDERED: GLUCOSE 40% GEL 15 GM TUBE PO PRN (17:39)
[2022-05-20] MEDS ORDERED: bisacodyL 10 MG SUPP PR PRN (17:39)
[2022-05-20] MEDS ORDERED: CARBOHYDRATES FOR HYPOGLYCEMIA PO PRN (17:39)
[2022-05-20] MEDS ORDERED: MAGNESIUM HYDROXIDE SUSP 30 ML UDC PO PRN (17:39)
[2022-05-20] MEDS ORDERED: PHARMACY GLYCEMIC MGMT CONSULT PRN (17:39)
[2022-05-20] MEDS ORDERED: diphenhydrAMINE Capsule 25 MG CAP PO PRN (17:39)
[2022-05-20] MEDS ORDERED: GLUCAGON FOR INJ 1 MG VIAL SQ PRN (17:39)
[2022-05-20] MEDS ORDERED: DEXTROSE 50% 50 ML SYRINGE IV PRN (17:39)
[2022-05-20] MEDS ORDERED: METOCLOPRAMIDE HCL INJ 5 MG/ML 2 ML VIAL IV PRN (17:39)
[2022-05-20] MEDS ORDERED: ALUMINUM/MAGNESIUM SUSP 30 ML UDC PO PRN (17:39)
[2022-05-20] MEDS: INSULIN ASPART PER UNIT SC SCH ×2 (20:03→22:27)
[2022-05-20] MEDS: SODIUM CHLORIDE 0.9% 1000ML 1,000 ML IV SCH (20:10)
[2022-05-20] MEDS: Scopolamine CHECK PATCH PLACEMENT SCH (20:10)
[2022-05-20] MEDS: ASCORBIC ACID 500 MG TAB PO SCH (20:39)
[2022-05-20] MEDS: KETOROLAC 30 MG/ML VIAL IV SCH (20:40)
[2022-05-20] MEDS: ASPIRIN 81 MG ECTAB PO SCH (20:44)
[2022-05-20] MEDS: DOCUSATE SODIUM 100 MG CAP PO SCH (20:44)
[2022-05-20] MEDS: TAPENTADOL HCL ER 50 MG TABCR PO SCH (20:47)
[2022-05-20] MEDS ORDERED: GABAPENTIN 300 MG CAP PO SCH (21:00)
[2022-05-20] MEDS ORDERED: SENNA 8.6 MG TAB PO SCH (21:00)
[2022-05-20] MEDS: ACETAMINOPHEN 500 MG TAB PO SCH (21:57)
[2022-05-20] MEDS: oxyCODONE HCL IR 5 MG TAB (IMMEDIATE RELEASE) PO PRN (21:57)
[2022-05-20] MEDS: ceFAZolin 2000MG 2,000 MG/15 ML SYR IV SCH (21:57)
[2022-05-20] MEDS ORDERED: TRANEXAMIC ACID / 0.7% NACL 1,000 MG/100 ML BAG IV SCH (22:00)
[2022-05-21] MEDS: Scopolamine CHECK PATCH PLACEMENT SCH ×2 (00:31→07:51)
[2022-05-21] MEDS: KETOROLAC 30 MG/ML VIAL IV SCH ×3 (00:34→12:36)
[2022-05-21] MEDS: oxyCODONE HCL IR 5 MG TAB (IMMEDIATE RELEASE) PO PRN ×2 (03:51→12:36)
[2022-05-21] MEDS: SODIUM CHLORIDE 0.9% 1000ML 1,000 ML IV SCH (05:37)
[2022-05-21] MEDS: ACETAMINOPHEN 500 MG TAB PO SCH (05:38)
[2022-05-21] MEDS: ceFAZolin 2000MG 2,000 MG/15 ML SYR IV SCH (05:39)
[2022-05-21] MEDS ORDERED: LEVOTHYROXINE SODIUM 88 MCG TABLET PO SCH (06:30)
[2022-05-21 06:55] LABS: Hematocrit (blood only) 31.1 % (34.1-44.9); Hemoglobin 10.3 g/dl (12.0-16.0); Mean Corpuscular Hemoglobin 31.6 pg (25.0-34.0); Mean Corpuscular Hgb Conc 33.1 g/dL (32.0-36.0); Mean Corpuscular Volume 95.4 fL (80.0-100.0); Mean Platelet Volume 11.3 fL (9.4-12.3); Platelet Count 161 K/uL (130-400); RDW Coefficient of Variation 12.7 % (11.5-14.5); RDW Standard Deviation 44.6 fL (36.4-46.3); Red Blood Count 3.26 M/uL (3.93-5.22); White Blood Count 7.22 K/ul (4.8-10.8)
[2022-05-21 07:36] LABS: BUN Creatinine Ratio 17.7 (10-20); Calcium 7.7 mg/dl (8.5-10.1); Creatinine Clr Calc Pharmacy 99.6 ml/min; Est GFR (African American) 92.3 ml/min; Est GFR (Non-African American) 79.7 ml/min
[2022-05-21] MEDS: ASPIRIN 81 MG ECTAB PO SCH (07:49)
[2022-05-21] MEDS: DOCUSATE SODIUM 100 MG CAP PO SCH (07:49)
[2022-05-21] MEDS: ASCORBIC ACID 500 MG TAB PO SCH (07:50)
[2022-05-21] MEDS: TAPENTADOL HCL ER 50 MG TABCR PO SCH (07:53)
[2022-05-21] MEDS ORDERED: lisinopril 20 MG TAB PO SCH (09:00)
[2022-05-21] MEDS ORDERED: CHOLECALCIFEROL 1,000 UNITS 25 MCG TAB PO SCH (09:00)
[2022-05-21] MEDS ORDERED: DOCUSATE SODIUM/SENNA 50/8.6MG TAB PO SCH (09:00)
[2022-05-21] MEDS ORDERED: ROSUVASTATIN CALCIUM 5 MG TAB PO SCH (09:00)
[2022-05-21] MEDS ORDERED: MULTIVITAMIN TAB PO SCH (09:00)
[2022-05-21] MEDS: INSULIN ASPART PER UNIT SC SCH (09:12)
--- NOTE | 2022-05-21 11:01 | Orthopedic Progress Note ---
Date of Service May 21, 2022 Assessment & Plan (1) Status post total right knee replacement: -Doing well on POD 1 -Pain controlled with current regimen -Continue Aspirin 81 mg BID for DVT ppx -WBAT RLE: PT/OT evaluation today -Post op abx ordered Dispo: Likely discharge home today with home health pending PT/OT evaluation. Subjective Doing well today. Minimal pain, controlled with current pain meds. Up and walking without issue. Review of Systems All systems reviewed & are unremarkable except as noted in HPI & below. Physical Exam General: Pleasant 62 y/o/f resting comfortably in bed. AAO x 4 RLE: Dressing is C/D/I. Minimal incisional tenderness. Distally NVI . Results & Data Results & Data Laboratory Results Reviewed - Stable . Diagnostic Findings Reviewed - Expected post operative findings . PG Care Time/CCT Total # of Minutes Spent Total Time Spent with Patient: Total time spent is greater than 50% in coordination of care (as documented) at patient's floor/unit and/or counseling patient: Coding Level of Care Code 48269 Post Operative Follow-Up Diagnoses Status post total right knee replacement Z96.651
--- NOTE | 2022-05-24 07:25 | Discharge Summary ---
Date of Service May 24, 2022 Discharge Data Procedures Performed Operation Date: 05/20/22 12:30 Actual Procedures p Right Total Knee Arthroplasty(Right) - Jose Atwood MD Hospital Course (1) Status post total right knee replacement: This is a 62 year old patient admitted on 05/20/22 and underwent total knee arthroplasty. She tolerated the procedure well and there were no complications. Transferred to the PACU post op and later to the orthopedic floor for further care. She was given ancef for antibiotic prophylaxis. She was also given ISAIAS stockings, SCDs, and aspirin for DVT prophylaxis. Hemoglobin, hematocrit, and vital signs were monitored during her hospital stay and remained stable. Did not require any blood transfusions. There were no complications during her hospital stay. By post op day #1 the patient was tolerating a diabetic diet, pain was reasonably controlled with oral pain medicine, and she was participating in physical therapy. On post op day #1 the patient was discharged home and set up with home health care. She was given printed discharge instructions including prescriptions for extra strength tylenol, aspirin, cefadroxil, ketorolac, zofran, senokot, and oxycodone. Continue physical therapy, weight bearing as tolerated. Continue ISAIAS stockings. Follow up approximately 2 weeks post op or sooner if there are problems or concerns. Coding Level of Care Code None Diagnoses Status post total right knee replacement Z96.651
== END 2022-05-21 13:04 | disposition home health service (06) ==
LOC: ASU 09:38 → PACUINP 09:38 → 3N 19:25